=== PATIENT | female | born 1970 | race Asian ===

== ENCOUNTER 2020-09-30 12:19 | Outpatient (REF) | payer OTHER, SELFPAY ==
--- NOTE | ~2020-09-30 | XR_ITS ---
EXAMINATION: XR SHOULDER, RIGHT CLINICAL INFORMATION: Pain COMPARISON: None TECHNIQUE: Three views of the right shoulder. FINDINGS: The bones and soft tissues are normal. No fracture. Glenohumeral and acromioclavicular alignment is anatomic with normal joint space. No abnormal soft tissue calcifications. XR/XR shoulder RT min 2V IMPRESSION: Normal right shoulder.
== END 2020-09-30 12:20 | disposition home or self-care (01) ==
LOC: HO.HMGCX 12:19
PROVIDERS: PCP Internal Medicine; Visit Provider Nurse Practitioner Family
DX: M25.511 Pain in right shoulder (principal)
CPT/HCPCS: 73030

== ENCOUNTER → 2020-10-16 07:53 | Outpatient (BNVA) | payer OTHER, SELFPAY | PROVIDERS: PCP Internal Medicine; Visit Provider Physician Assistant | DX: M75.41 Impingement syndrome of right shoulder (principal) | CPT/HCPCS: 20610; 99202; J1040 ==

== ENCOUNTER 2020-11-19 10:00 | Outpatient (RCR) | payer OTHER, SELFPAY ==
--- NOTE | 2020-11-12 13:49 | MHC.PT.EP ---
[facility] [place] Office [place] Office [place] Office [address] Raphael Zamudio [address] [phone] F: [phone] F: [phone] F: [phone] F: [phone] Physical Therapy Plan of Care Date of Evaluation: Date of Surgery: N/A Diagnosis: impingement syndrome of R shoulder Assessment: Working PT diagnoses include R shoulder impingment and R sided cervical radiculopathy. pt presents to physical therapy with pain, decreased range of motion, decreased strength, impaired functional mobility, impaired postural awareness, and gait deviations. pt is a good candidate for skilled PT due to age, potential remediation of impairments, typical disease/condition progression and prognosis, comorbidities, and motivation. pt would benefit from tailored strengthening and stretching exercise program, functional training, gait training, postural re-training, neuromuscular re-education, modalities as needed for pain, equipment safety demonstration. Frequency and Duration: The patient will be seen 2x/wk for 4 wks Short Term Goals: pt will be I w/ HEP to promote self-management of condition. pt will demo proper sitting posture w/ lumbar roll to promote neutral spine. pt will improve R shoulder flexion by 15 degrees to promote ease in reaching for objects on higher shelves. Senior Care Goals: pt will report a statistically significant improvement in self-reported outcome measure, SPADI, to promote return to PLOF. pt will improve R shoulder flexion strength to 4/5 in all planes to improve functional lifting and carrying at work. pt will report <2/10 R shoulder pain w/ upper body dressing to promote full return to ADLs. Treatment Plan: Modalities to reduce pain, spasms and effusion. Manual therapy to restore motion and function. Therapeutic exercise to improve strength and flexibility. Neuromuscular re-education for posture and balance. Therapeutic activities to return to functional activities of daily living. Electronically signed by: Domonique Lew PT, DPT Please sign and return to therapist. Thank you for your referral.
--- NOTE | 2020-12-01 14:04 | MHC.PT.DC ---
[facility] [place] Office [place] Office [place] Office [address] Raphael Zamudio 140 [facility] [phone] F: [phone] F: [phone] F: [phone] F: [phone] Physical Therapy Discharge Report Diagnosis: impingement syndrome of R shoulder Date of Surgery: N/A Date of Evaluation: 11/12/20 Date of Discharge: 12/01/20 Treatments to Date: 2 Cancellations to Date: 0 No Shows to Date: 0 Discharge Status: Visit Non-compliance Discharge Summary: The patient has only attended one visit after her initial evaluation. She was given a series of both cervical and shoulder exercises to work on as part of her home exercise program. She has not called to schedule any further appointments in nearly two weeks. She is discharged from this physical therapy plan of care due to non-compliance. Her current status is unknown. Electronically signed by: Domonique Lew PT, DPT Please sign and return to therapist. Thank you for your referral.
== END 2020-12-01 14:04 | disposition home or self-care (01) ==
LOC: HO.PT 10:00
PROVIDERS: PCP Internal Medicine; Visit Provider Physician Assistant
DX: M75.40 Impingement syndrome of unspecified shoulder (principal)
CPT/HCPCS: 97110; 97112; 97140; 97162

== ENCOUNTER → 2020-12-26 13:18 | Outpatient (BNVA) | payer OTHER, SELFPAY | PROVIDERS: Visit Provider Physician Assistant | DX: M75.40 Impingement syndrome of unspecified shoulder (principal) | CPT/HCPCS: 99212 ==

== ENCOUNTER → 2021-01-12 08:01 | Outpatient (BNVA) | payer OTHER, SELFPAY | PROVIDERS: PCP Internal Medicine; Visit Provider Internal Medicine | DX: M75.40 Impingement syndrome of unspecified shoulder (principal) | CPT/HCPCS: 99202 ==

== ENCOUNTER 2021-01-14 13:30 | Outpatient (REF) | payer OTHER, SELFPAY ==
--- NOTE | ~2021-01-14 | MR_ITS ---
EXAMINATION: MR SHOULDER WITHOUT CONTRAST, RIGHT CLINICAL INFORMATION: Right shoulder pain. Impingement syndrome. COMPARISON: Right shoulder radiographs dated 09/30/2020 TECHNIQUE: MRI of the shoulder without contrast was performed on a high-field scanner. FINDINGS: ROTATOR CUFF: Mild supraspinatus and minimal subscapularis tendinosis without a measurable rotator cuff tendon defect. No muscle atrophy or fatty infiltration. BICEPS: Normal. CORACOACROMIAL ARCH: The undersurface of the acromion is curved with no subacromial spur. The acromioclavicular joint is normal. Fluid within the subacromial-subdeltoid bursa, consistent with bursitis. LABRUM/CAPSULE: Normal. GLENOHUMERAL JOINT/MARROW: Normal. MR/MR shoulder RT wo con IMPRESSION: 1. Subacromial-subdeltoid bursitis. 2. Mild supraspinatus and minimal subscapularis tendinosis without a measurable rotator cuff tendon defect.
== END 2021-01-14 13:31 | disposition home or self-care (01) ==
LOC: HO.MRI 13:30
PROVIDERS: Visit Provider Physician Assistant
DX: M75.40 Impingement syndrome of unspecified shoulder (principal)
CPT/HCPCS: 73221

== ENCOUNTER → 2021-01-23 09:27 | Outpatient (BNVA) | payer OTHER, SELFPAY | PROVIDERS: PCP Internal Medicine; Visit Provider Internal Medicine ==

== ENCOUNTER 2023-10-04 12:18 | Outpatient (AMB) | payer OTHER, SELFPAY ==
[2023-10-04 12:30] VITALS: BP 122/76; PULSE 64; O2SAT 100; BMI 22.3
--- NOTE | 2023-10-04 12:30 | A.OFFPC_ITS ---
Vital Signs 10/04/23 12:30 Height 5 ft 2 in Weight 122 lb BMI 22.3 BP 122/76 Blood Pressure Location Rt brachial Position Sitting Pulse 64 Pulse Source Pulse Oximeter Pulse Oximetry (%) 100 Oxygen Delivery Method Room Air Intake Visit Reasons: Annual PE Allergies No Known Allergies [No Known Allergies*] Allergy (Verified 10/04/23 12:32) Medication List - Last Reconciled 10/04/23 by Александр Manriquez MD No Known Home Meds Tobacco use date assessed: 10/04/23 Dental Screening Dental Screen Date: 10/04/23 Did you have a dental visit in the last 12 months?: Yes Did you have a dental problem in the last 6 months where you did not have access to dental care?: No Was dental information given to patient?: Patient has dentist HPI Annual PE HPI Details Patient is a 53-year-old female who was last seen almost 3 years ago came in for physical exam Patient is complaining of bilateral knee pain off and on what she is doing well right now Patient says that she had a menopause in 2017 I have added bone density as well as mammogram order She is due for colonoscopy as well Patient is in need of OBGYN as well. 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 1. Little interest or pleasure in doing things: not at all 2. Feeling down, depressed, or hopeless: not at all 3. Trouble falling or staying asleep, or sleeping too much: not at all 4. Feeling tired or having little energy: not at all 5. Poor appetite or overeating: not at all 6. Feeling bad about yourself - or that you are a failure or have let yourself or your family down: not at all 7. Trouble concentrating on things, such as reading the newspaper or watching television: not at all 8. Moving or speaking so slowly that other people could have noticed. Or the opposite - being so fidgety or restless that you have been moving around a lot more than usual: not at all 9. Thoughts that you would be better off or of hurting yourself in some way: not at all Total score: 0 Depression Screening Interpretation: Negative Depression Screening Done: Yes 77930 - PHQ-9 Billing: Yes Source: Developed by Drs. Oc Chan, Siomara Alvarez, Gregg Durham and colleagues, with an educational annia from [employer]. Thrive Questionnaire Date Thrive assessed: 10/04/23 I am a: Patient What is your living situation today?: I have a steady place to live Within the past 12 months, did the food you bought not last and you didn't have the money to get more?: Never true Within the past 12 months, did you worry whether your food would run out before you got money to buy more?: Never true Do you have trouble paying for medicines?: No Do you have trouble getting transportation to medical appointments?: No Do you have trouble paying your heating and electricity bill?: No Do you have trouble taking care of your child, family member or friend?: No Do you have trouble with day-to-day activities such as bathing, preparing meals, shopping, managing finances, etc.?: No Are you currently unemployed and looking for a job?: No Are you interested in more education?: No Currently or been in a relationship where the following occur: I choose not to answer this question THRIVE Score: 0 AUDIT C Alcohol Use Questionnaire (AUDIT-C) 1. How often do you have a drink containing alcohol?: Never 3. How often do you have six or more drinks on one occasion?: Never Total Score: 0 Score Reviewed/Action Taken: Yes CATHERINE-7 AMB Questionnaire CATHERINE-7 Date CATHERINE - 7 assessed: 10/04/23 Feeling nervous, anxious, or on edge: 0 = Not at all Not being able to stop or control worryin = Not at all Worrying too much about different things: 0 = Not at all Trouble relaxin = Not at all Being so restless that it is hard to sit still: 0 = Not at all Becoming easily annoyed or irritable: 0 = Not at all Feeling afraid as if something awful might happen: 0 = Not at all Total CATHERINE-7 score (0-4 normal; 5-9 mild; 10-14 moderate; 15-21 severe): 0 Source: Developed by Drs. Oc Chan, Siomara Alvarez, Gregg Durham and colleagues, with an educational annia from [employer]. CATHERINE-7 Assessment Billing CATHERINE-7 Assessment Tool: CATHERINE-7 Assessment 84451 Review of Systems Const Denies chills, Denies fever(s) and Denies headache(s) Eyes Denies blurry vision ENT Denies headache(s), Denies nasal discharge, Denies nasal obstruction, Denies odynophagia and Denies sinus pain Card Denies chest pain at rest and Denies chest pain with activity Resp Denies cough and Denies hemoptysis GI Denies diarrhea, Denies odynophagia, Denies vomiting and Denies hematemesis Reports as per HPI Musc Denies abnormal gait Skin/Breast Reports as per HPI Neuro Denies Neuro-related abnormal movements, Denies Abnormal speech present, Denies abnormal gait, Denies headache(s) and Denies Sensory deficit (Neuro) Psych Denies mood swings and Denies paranoia Endo Reports as per HPI Cr/Lymph Reports as per HPI Aller/Immun Reports as per HPI Physical exam (Primary Care) Vital Signs: Last Vital Signs Pulse 64 10/04/23 12:30 BP 122/76 10/04/23 12:30 Pulse Ox 100 10/04/23 12:30 Oxygen Delivery Method Room Air 10/04/23 12:30 BMI result Body Mass Index 22.3 Tobacco/Smoking Status: Tobacco use Status Tobacco use date assessed 10/04/23 10/04/23 12:35 Patient Tobacco Use Status Never used Tobacco 10/04/23 12:35 e-Cigarette/Vaping Use Never Used 10/04/23 12:35 PHQ-9: PHQ-9 Score PHQ-9: Total score 0 10/04/23 12:55 Depression Screening Interpretation: Negative Thrive Assessment: Date of Thrive Assessment Date Thrive assessed 10/04/23 10/04/23 12:55 Currently or been in a relationship where the following occur: I choose not to answer this question Const General: cooperative, comfortable and no acute distress Orientation/consciousness: patient oriented x3 HENMT Head: Yes normocephalic and Yes atraumatic Eyes General: appearance normal, both eyes and all related structures Pupils: Equal, round and reactive pupils present EOM: EOMs intact bilaterally Neck Neck: Yes supple and No lymphadenopathy Thyroid: Thyroid normal Lymphatic: no lymphadenopathy noted Chest Breast/axilla palpation: normal palpation of the breasts Resp Effort & Inspection: normal respiratory effort and able to speak in complete sentences Auscultation: clear to auscultation bilaterally Cardio Heart sounds: S1 normal heart sound present and S2 normal heart sound present GI Palpation (GI): Soft to palpation and nontender Auscultation: normal bowel sounds General: Yes no CVA tenderness Back/Spine/Pelvis Back: no CVA tenderness Skin General skin exam: elasticity normal and turgor normal Neuro General: patient oriented x3 and gait normal Cranial nerves: Yes Equal, round and reactive pupils present Speech: No Abnormal speech present Sensory Exam: No Sensory deficit (Neuro) Coordination: tandem gait normal and Romberg test negative Extrem General: Yes normal exam except as noted and No edema Assessment and Plan Assessment & Plan (1) Encounter for general adult medical examination with abnormal findings: Code(s): Z00.01 - Encounter for general adult medical examination with abnormal findings (2) Degenerative arthritis of knee, bilateral: Code(s): M17.0 - Bilateral primary osteoarthritis of knee Qualifiers: Osteoarthritis type: primary Qualified Code(s): M17.0 - Bilateral primary osteoarthritis of knee (3) Colon cancer screening: Code(s): Z12.11 - Encounter for screening for malignant neoplasm of colon (4) Encounter for routine gynecological examination: Code(s): Z01.419 - Encounter for gynecological examination (general) (routine) without abnormal findings (5) Premature menopause: Code(s): E28.319 - Asymptomatic premature menopause Plan Patient is a 53-year-old female who was last seen almost 3 years ago came in for physical exam Patient is complaining of bilateral knee pain off and on what she is doing well right now Patient says that she had a menopause in 2017 I have added bone density as well as mammogram order She is due for colonoscopy as well Patient is in need of OBGYN as well. Lab order placed to be done fasting We will book telemedicine visit in 2 weeks to go over labs Physical exam 1 year Orders: Orders Comprehensive [place]. Panel Fast Today M17.0 - Bilateral primary osteoarthritis of knee, Z00.01 - Encounter for general adult medical examination with abnormal findings MM tomosynthesis screening BI Today E28.319 - Asymptomatic premature menopause, Z12.31 - Encounter for screening mammogram for malignant neoplasm of breast Complete Blood Count Auto Diff Today M17.0 - Bilateral primary osteoarthritis of knee, Z00.01 - Encounter for general adult medical examination with abnormal findings TSH reflex Free T4 Today M17.0 - Bilateral primary osteoarthritis of knee, Z00.01 - Encounter for general adult medical examination with abnormal findings Vitamin D 25-OH (D2 and D3) Today M17.0 - Bilateral primary osteoarthritis of knee, Z00.01 - Encounter for general adult medical examination with abnormal findings Lipid Panel Today M17.0 - Bilateral primary osteoarthritis of knee, Z00.01 - Encounter for general adult medical examination with abnormal findings UA CC w/rflx Micro + Cult Today Z00.01 - Encounter for general adult medical examination with abnormal findings XR DEXA axial skeleton Today E28.319 - Asymptomatic premature menopause, Z12.31 - Encounter for screening mammogram for malignant neoplasm of breast Referrals Gastroenterology Referral Z12.11 - Encounter for screening for malignant neoplasm of colon 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
== END 2023-10-04 13:00 | disposition home or self-care (01) ==
PROVIDERS: PCP Internal Medicine; Visit Provider Internal Medicine
DX: Z00.00 Encounter for general adult medical examination without abnormal findings (principal); M17.0 Bilateral primary osteoarthritis of knee; Z12.11 Encounter for screening for malignant neoplasm of colon; E28.319 Asymptomatic premature menopause
CPT/HCPCS: 99396

== ENCOUNTER 2023-10-04 13:03 | Outpatient (REF) | payer OTHER, SELFPAY ==
[2023-10-04 16:12] LABS: Appearance Urine Clear; Color Urine Yellow; Glucose Urine UA Negative (Negative); Leukocyte Esterase Urine Negative (Negative); Nitrite Urine Negative (Negative); Specific Gravity - Urine <= 1.005 (1.005-1.025); Urine Blood Negative (Negative); Urine Ketones Negative (Negative); Urine Protein Negative (Neg-Trace)
[2023-10-04 16:26] LABS: MANUAL DIFF FLAG NO
[2023-10-04 16:38] LABS: Basophils Percent Auto 0.4 % (0-2); Eosinophils Absolute Auto 0.1 X10*3/uL (0.0-0.4); Hematocrit 37.9 % (37.0-47.0); Hemoglobin 12.1 g/dl (12.0-16.0); Imm Gran Abs Auto 0.01 X10*3/uL (0.00-0.03); Imm Gran Pct Auto 0.2 % (0.0-0.4); Lymphocytes Absolute Auto 2.5 X10*3/uL (1.2-4.9); Lymphocytes Percent Auto 50.9 % (20-40); Mean Corpuscular HGB Conc 31.9 g/dl (31.0-35.0); Mean Corpuscular Hemoglobin 29.5 pg (27.0-33.0); Mean Corpuscular Volume 92.4 fL (80.0-98.0); Mean Platelet Volume 10.9 fL (9.4-12.3); Monocytes Absolute Auto 0.3 X10*3/uL (0.1-1.2); Monocytes Percent Auto 5.9 % (2-11); Neutrophils Absolute Auto 2.1 x10*3/uL (2.0-8.3); Neutrophils Percent Auto 41.6 % (45-73); Platelet Count 223 X10*3/uL (160-400); Red Cell Distribution Width 12.1 % (11.0-16.0); White Blood Count 4.9 X10*3/uL (4.8-10.8)
[2023-10-04 17:30] LABS: Alanine Aminotransferase 14 U/L (0-31); Albumin Level 4.7 g/dL (3.5-5.0); Alkaline Phosphatase 111 U/L (39-117); Anion Gap 14 (12-20); Aspartate Amino Transferase 17 U/L (5-31); Bilirubin Total 0.3 mg/dL (0.0-1.0); Blood Urea Nitrogen 9 mg/dL (9-16); Calcium 9.9 mg/dL (8.4-10.2); Carbon Dioxide 26 mmol/L (22-29); Chloride 108 mmol/L (96-108); Cholesterol 200 mg/dL (<200); Estimated Glomerular Filt Rate > 60; Glucose Fasting 88 mg/dL (60-99); HDL Cholesterol 55 mg/dL (>40); LDL Cholesterol Calculated 122 mg/dL (<100); Potassium 4.4 mmol/L (3.3-5.1); Sodium 144 mmol/L (135-145); Total Protein 7.6 g/dL (6.5-8.0); Triglycerides 117 mg/dL (<150)
[2023-10-04 17:46] LABS: TSH reflex Free T4 2.52 uIU/mL (0.32-4.0)
[2023-10-09 15:49] LABS: Vitamin D 25-OH, D2 <4 ng/mL; Vitamin D 25-OH, D3 16 ng/mL; Vitamin D 25-OH, Total 16 ng/mL (30-100)
== END 2023-10-04 13:04 | disposition home or self-care (01) ==
LOC: HO.HMGCLDS 13:03
PROVIDERS: PCP Internal Medicine; Visit Provider Internal Medicine
DX: Z00.01 Encounter for general adult medical examination with abnormal findings (principal); M17.0 Bilateral primary osteoarthritis of knee
CPT/HCPCS: 36415; 80053; 80061; 81003; 82306; 84443; 85025

== ENCOUNTER 2023-10-19 10:06 | Outpatient (AMB) | payer OTHER, SELFPAY ==
--- NOTE | 2023-10-19 10:25 | A.OFFPC_ITS ---
Intake Visit Reasons: 2 week follow up Allergies No Known Allergies [No Known Allergies*] Allergy (Verified 10/19/23 10:25) Medication List - Last Reconciled 10/19/23 by Александр Manriquez MD No Known Home Meds Tobacco use date assessed: 10/19/23 Dental Screening Dental Screen Date: 10/19/23 Did you have a dental visit in the last 12 months?: Yes Did you have a dental problem in the last 6 months where you did not have access to dental care?: No Was dental information given to patient?: Patient has dentist HPI 2 week follow up HPI Details Telemed visit to go over labs reports reviewed with patient Vit D level is low she is to start OTC supplement 1000 u daily for next 6 M [facility] Social History Housing: House Alcohol intake: never Patient Tobacco Use Status: Never used Tobacco e-Cigarette/Vaping Use: Never Used service: No Current occupational status: employed 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 How often do you have a drink containing alcohol?: Never 3. How often do you have six or more drinks on one occasion?: Never Total Score: 0 Score Reviewed/Action Taken: Yes CATHERINE-7 AMB Questionnaire CATHERINE-7 Date CATHERINE - 7 assessed: 10/04/23 Source: Developed by Drs. Oc hCan, Siomara Alvarez, Gregg Durham and colleagues, with an educational annia from [employer]. Review of Systems Const Denies chills and Denies fever(s) ENT Denies epistaxis and Denies nasal discharge Card Denies chest pain Resp Denies chest congestion, Denies cough and Denies hemoptysis GI Denies diarrhea and Denies nausea Skin/Breast Denies rash Neuro Reports no additional complaints Psych Reports no additional complaints Endo Reports no additional complaints Physical exam (Primary Care) Tobacco/Smoking Status: Tobacco use Status Tobacco use date assessed 10/19/23 10/19/23 10:26 Patient Tobacco Use Status Never used Tobacco 10/19/23 10:26 e-Cigarette/Vaping Use Never Used 10/19/23 10:26 Thrive Assessment: Date of Thrive Assessment Date Thrive assessed 10/04/23 10/19/23 10:26 Telehealth Telehealth Telehealth Platform: [employer] Location of provider rendering services: practice address Location of patient: address on file Patient Identification confirmed using: Name, : Yes Telehealth method: voice only Patient verbally consented to treatment: Yes Patient verbally consented to billing insurance company: Yes Patient informed of any privacy concerns related to visit: Yes Minutes spent on Phone/Video with Pt.: 13 Assessment and Plan Assessment & Plan (1) Vitamin D deficiency: Code(s): E55.9 - Vitamin D deficiency, unspecified Plan Telemed visit to go over labs reports reviewed with patient Vit D level is low she is to start OTC supplement 1000 u daily for next 6 M patient was given time to ask questions Coding Level of Care Code Tele Est Pt Level 3 (75648) Diagnoses Vitamin D deficiency E55.9
== END 2023-10-19 12:16 | disposition home or self-care (01) ==
LOC: HO.HMGC 10:06
PROVIDERS: PCP Internal Medicine; Visit Provider Internal Medicine
DX: E55.9 Vitamin D deficiency, unspecified (principal)
CPT/HCPCS: 99213

== ENCOUNTER 2023-10-20 09:45 | Outpatient (REF) | payer OTHER, SELFPAY ==
[2023-10-28 00:39] LABS: HPV mRNA E6/E7 rflx Not Detected (Not Detected)
== END 2023-10-20 09:46 | disposition home or self-care (01) ==
LOC: HO.LAB 09:45
PROVIDERS: Advanced Practice Midwife; PCP Internal Medicine; Visit Provider Advanced Practice Midwife
DX: Z01.419 Encounter for gynecological examination (general) (routine) without abnormal findings (principal); E28.319 Asymptomatic premature menopause
CPT/HCPCS: 87624; 88142; 99386

== ENCOUNTER 2023-10-20 09:45 | Outpatient (AMB) | payer OTHER, SELFPAY ==
[2023-10-20 10:02] VITALS: BP 110/62; BMI 23.0
--- NOTE | 2023-10-20 10:02 | A.OFFVIS_ITS ---
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 She usually sees Dr. Manriquez her last Pap smear was about 4 years ago and she says it was normal. She has never had any lint cleaner concerns she went through menopause around 2017 she had symptoms of it before that she thinks she gets enough calcium she has had blood work done with her primary care provider recently and was told she was a little bit low on vitamin-D and vitamin-B and will be taking supplements. She is vegetarian she does exercise at home and she does a lot of walking so she is very active and she does meditation and she feels she does not have any stress she has not very sexually active anymore with her . This is not a problem. She believes a gastroenterology referral has been placed for her as well as mammogram order she thought today was the mammogram so she was not prepared for Pap today but she thinks it is okay. She has no concerns about STDs she had her tubes tied after her 2nd she has 2 grown children. 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 Cognitive needs: No Hearing needs: No Vision needs: No Female Reproductive History Menstrual Age of Menarche: 17 Duration of menses: 3-5 days control method: permanent sterilization Total pregnancies: 2 Full term: 2 History of abnormal pap smear: No (2019,negative ,per patient) History of abnormal mammogram: No (2019 neg per patient) Physical Exam Vital Signs: Last Vital Signs BP 110/62 10/20/23 10:02 BMI result Body Mass Index 23.0 Const General: healthy appearing, comfortable, no acute distress, well developed and alert Nutritional Appearance: average body habitus Orientation/consciousness: patient oriented x3 Limitations: no limitations HEENT Head: Yes normocephalic Neck Neck: Yes normal visual inspection Chest Chest palpation & inspection: normal inspection of the chest Breast/axilla inspection: normal inspection of the breasts and normal inspection of the axillae Breast/axilla palpation: normal palpation of the breasts and normal palpation of the axillae Resp Effort & Inspection: normal respiratory effort GI Inspection: Yes normal to inspection, No Abdominal wall edema and No distended Palpation (GI): Soft to palpation and nontender Other: External exam within limits cervix pink smooth closed postmenopausal small flattened against vaginal apex atrophic changes evident. Uterus very small nontender adnexa nontender not enlarged good tone with Kegel no abnormal discharge. General: Yes bladder normal to palpation External Female Exam: normal external appearance and normal appearance of the urethra Speculum Exam - Vagina: normal appearance of the vagina, normal palpation and normal vaginal discharge Speculum Exam - Cervix: normal appearance of the cervix, normal palpation and nontender Bimanual exam- vagina & uterus: normal bimanual exam, normal palpation, uterine size normal, bladder normal to palpation, consistency normal, normal palpation, uterine mobility normal, uterine shape normal, No Cervical tenderness present, non-tender and no cervical motion tenderness Bimanual Exam- Adnexa, other: normal adnexae, no masses, normal and No adnexal tenderness Neuro General: patient oriented x3 Assessment & Plan Assessment & Plan (1) Premature menopause: Code(s): E28.319 - Asymptomatic premature menopause Category: Medical (2) Women's annual routine gynecological examination: Code(s): Z01.419 - Encounter for gynecological examination (general) (routine) without abnormal findings Category: Medical (3) Cervical cancer screening: Code(s): Z12.4 - Encounter for screening for malignant neoplasm of cervix Category: Medical (4) Breast cancer screening: Comment: States her mother of breast cancer. She is discussed this with her primary she is now going to getting yearly mammograms, discussed genetic screening as well. Code(s): Z12.39 - Encounter for other screening for malignant neoplasm of breast Category: Medical Plan -----Discussed in this visit the following: healthy balanced diet, regular and consistent exercise, getting recommended health screens, doing the best she can for her particular health concerns, kegel exercises, pap smear screening and followup recommendations, mammography screening and SBE, normal changes in cycles in her life stage--- . She says an order has been placed for her mammogram already and she is just waiting for the appointment. She discussed the family history of breast cancer with her doctor. Her mother is no longer alive for genetic testing. Discussed getting enough calcium in her diet. She does active exercise and keeps herself healthy she is getting her all of her other screening through her primary care provider. Discussed annual exams with that her next Pap smear would not do be due for 5 years if this 1 is normal she had new concerns about infection and declines testing. . Orders: Orders Pap Smear Today Z01.419 - Encounter for gynecological examination (general) (routine) without abnormal findings Coding Level of Care Code New Pt Prev Care 40-64y(67315) Diagnoses Premature menopause E28.319 Women's annual routine gynecological examination Z01.419 Cervical cancer screening Z12.4 Breast cancer screening Z12.39
== END 2023-10-20 13:18 | disposition home or self-care (01) ==
LOC: HO.HWSM 09:45
PROVIDERS: PCP Internal Medicine; Visit Provider Advanced Practice Midwife
DX: Z01.419 Encounter for gynecological examination (general) (routine) without abnormal findings (principal)
CPT/HCPCS: 99386

== ENCOUNTER 2023-11-22 11:32 | Outpatient (REF) | payer OTHER, SELFPAY ==
--- NOTE | ~2023-11-22 | MM_ITS ---
EXAMINATION: MM SCREENING DIGITAL BREAST TOMOSYNTHESIS, BILATERAL CLINICAL INFORMATION: Screening. Asymptomatic. COMPARISON: Mammography: This study is compared with prior exams dating back to 2016. TECHNIQUE: Digital breast tomosynthesis is performed in both the craniocaudal and mediolateral oblique views along with computer-aided detection (CAD). Synthesized 2D images are generated from the tomosynthesis. FINDINGS: The breasts are heterogeneously dense, which may obscure small masses (ACR BI-RADS breast composition Category c). There are no significant masses, abnormal calcifications, or other abnormalities. MM/MM tomosynthesis screening BI IMPRESSION: No mammographic evidence of malignancy. ASSESSMENT: BI-RADS BI-RADS 1 - Negative RECOMMENDATION: Routine annual mammography screening. 1 year F/U This examination should not preclude the clinical evaluation of a suspicious palpable abnormality. This patient's information was entered into a reminder system with a target due date for their next mammogram.
--- NOTE | ~2023-11-22 | MM_ITS ---
EXAMINATION: BONE DENSITOMETRY CLINICAL INDICATION: Asymptomatic menopausal state. COMPARISON: This is the patient's baseline examination. TECHNIQUE: Using a [employer] DXA System (software version: 13.1) manufactured by [employer], dual-energy x-ray absorptiometry was performed of the lumbar spine and left hip. The images are of good technical quality. Summary results are attached. FINDINGS: LEFT FEMUR, NECK: BMD 0.787 g/cm2, Z-score -0.7, T-score -1.8, osteopenia. LEFT FEMUR, TOTAL: BMD 0.874 g/cm2, Z-score -0.3, T-score -1.1, osteopenia. AP SPINE L1-L4: BMD 0.892 g/cm2, Z-score -1.6, T-score -2.4, osteopenia. IDENTIFIED RISK FACTORS: Early menopause, secondary osteoporosis, parental hip fracture, height loss. HISTORY OF FRACTURE: None listed. MEDICATIONS: Calcium supplements or multivitamin, vitamin D. MM/XR DEXA axial skeleton IMPRESSION: 1. DIAGNOSIS: Osteopenia based on the lowest T-score value of -2.4 in the lumbar spine applying World Health Organization criteria. 2. 10-YEAR FRACTURE RISK PREDICTION, FRAX: Major osteoporotic fracture (clinical spine, forearm, hip or shoulder) 5.9%. Hip fracture 0.4%. 3. Treatment Recommendations: NOF guidelines recommend consideration for treatment in postmenopausal women and men age 50 and older presenting with the following: -A hip or vertebral (clinical or morphometric) fracture. -T-score less than or equal to -2.5 at the femoral neck or spine after appropriate evaluation to exclude secondary causes. -Low bone mass at the hip or spine and a 10-year fracture probability by FRAX of greater than or equal to 3% for hip fracture or greater than or equal to 20% for major osteoporotic fracture based on the [place] adapted WHO algorithm. 4. Other Recommendations: All treatment decisions require clinical judgment and consideration of individual patient factors, including patient preferences, comorbidities, previous drug use, risk factors not captured in the FRAX model (e.g. frailty, falls, vitamin D deficiency, increased bone turnover, interval significant decline in bone density) and possible under or overestimation of fracture risk by FRAX. Additional medical evaluation for secondary cause of low bone mineral density may be appropriate. FUTURE SCAN RECOMMENDATION: People with diagnosed cases of osteoporosis or at high risk for fracture should have regular bone mineral density tests. For patients eligible for Medicare, routine testing is allowed once every 2 years. The testing frequency can be increased to one year for patients who have rapidly progressing disease, those who are receiving or discontinuing medical therapy to restore bone mass, or have additional risk factors.
== END 2023-11-22 11:33 | disposition home or self-care (01) ==
LOC: HO.MAMMO 11:32
PROVIDERS: PCP Internal Medicine; Visit Provider Internal Medicine
DX: Z12.31 Encounter for screening mammogram for malignant neoplasm of breast (principal); Z13.820 Encounter for screening for osteoporosis; E28.319 Asymptomatic premature menopause
CPT/HCPCS: 77063; 77067; 77080

== ENCOUNTER → 2023-11-22 12:00 | Outpatient (BNV) | payer OTHER, SELFPAY | PROVIDERS: PCP Internal Medicine; Visit Provider Radiology Diagnostic Radiology | DX: Z12.31 Encounter for screening mammogram for malignant neoplasm of breast (principal) | CPT/HCPCS: 77063; 77067 ==

== ENCOUNTER 2023-12-05 13:20 | Outpatient (AMB) | payer OTHER, SELFPAY ==
[2023-12-05 13:55] VITALS: BP 122/78; BMI 23.2
--- NOTE | 2023-12-05 13:55 | MHC.OFFVIS ---
Vital Signs 12/05/23 13:55 Height 5 ft 1 in Weight 123 lb BMI 23.2 BP 122/78 Intake Visit Reasons: re peat pap Rock Cutter Required: No Rock Cutter Services: Rock Cutter Present Information Interpreted: clinical only Acoustics Teacher: Acoustics Teacher Present Allergies No Known Allergies [No Known Allergies*] Allergy (Verified 12/05/23 13:57) Medication List - Last Reconciled 12/05/23 by Denae Blount CNM No Known Home Meds Is last menstrual period known: No HPI HPI re peat pap: Details: Patient is here for repeat Pap smear may explain the previous findings and the common challenge postmenopausally. 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 Results Reviewed Results Reviewed: Name: Melanie Saab Age/Sex: 53/F Attending: Denae Blount CNM : 1970 Submitted by: Denae Blount CNM Copies to: Александр Manriquez MD MR #: [id number] Status: DEP REF Collected: 10/20/23 Location: .LAB Received: 10/21/23 Interpretation Unsatisfactory Insufficient cellular material. HPV mRNA E6/E7: NOT DETECTED This assay detects E6/E7 viral messenger RNA (mRNA) from 14 high-risk HPV types (16, 18, 31, 33, 35, 39, 45, 51, 52, 56, 58, 59, 66, 68) HPV testing performed by [facility], [place], [place]. See reference laboratory portion of the EMR for entire report. Clinical Information LMP: Postmenopausal Previous PAP test: WNL Material Received ThinPrep-Cervical Copies To Александр Manriquez MD [facility] [address] [id number] Denae Blount CNM [address] [place] [address] [id number] Electronically Signed By: Ember Arellano 11/13/23 7525 The Pap Test is a screening procedure with the inherent possibility of both false negative and false positive results. Results should be interpreted in the context of historic and current clinical findings. Reliability of the Pap Test is enhanced by performing the test on a regular repetitive basis. Patient: Melanie Saab Age/Sex: 53/F MR#: [id number] Page 1 of 1 Assessment & Plan Assessment & Plan (1) Cervical cancer screening: Comment: 10/20/2023 Pap as insufficient cellular material though HPV is negative will need repeat. Code(s): Z12.4 - Encounter for screening for malignant neoplasm of cervix Category: Medical Plan Discussed postmenopausal changes in some detail discussed that some women opt to try vaginal estrogen and also the use of vaginal lubricating gels for intimacy she is not interested. Her as age-related changes as well but they have love. If this Pap smear is normal her next Pap smear would be in 5 years. Coding Level of Care Code Est Pt Level 3 (75773) Diagnoses Cervical cancer screening Z12.4
== END 2023-12-05 15:33 | disposition home or self-care (01) ==
LOC: HO.HWSM 13:20
PROVIDERS: PCP Internal Medicine; Visit Provider Advanced Practice Midwife
DX: Z12.4 Encounter for screening for malignant neoplasm of cervix (principal)
CPT/HCPCS: 99213

== ENCOUNTER → 2023-12-05 13:20 | Outpatient (BNVA) | payer OTHER, SELFPAY | PROVIDERS: PCP Internal Medicine; Visit Provider Advanced Practice Midwife | DX: Z12.4 Encounter for screening for malignant neoplasm of cervix (principal) | CPT/HCPCS: 99212 ==

== ENCOUNTER 2023-12-05 19:40 | Outpatient (REF) | payer OTHER, SELFPAY ==
[2023-12-08 14:18] LABS: HPV mRNA E6/E7 Not Detected (Not Detected)
== END 2023-12-05 19:41 | disposition home or self-care (01) ==
LOC: HO.LNP 19:40
PROVIDERS: Visit Provider Advanced Practice Midwife
DX: Z01.419 Encounter for gynecological examination (general) (routine) without abnormal findings (principal); Z11.51 Encounter for screening for human papillomavirus (HPV)
CPT/HCPCS: 87624; 88175

== ENCOUNTER 2024-01-06 12:39 | Outpatient (AMB) | payer OTHER, SELFPAY ==
[2024-01-06 13:12] VITALS: BP 116/76; PULSE 94; BMI 23.2
--- NOTE | 2024-01-06 13:12 | MHC.OFFVIS ---
Vital Signs 01/06/24 13:12 Height 5 ft 1 in Weight 122 lb 9.232 oz BMI 23.2 BP 116/76 Blood Pressure Location Lt brachial Position Sitting Pulse 94 Intake Visit Reasons: Colonoscopy Screening Intake Note: Patient in office today for colonoscopy screening. CC: Patient c/o a lot of belching for years, epigastric pain, acid reflux with spicy food, back pain, shoulder pain, sometimes constipation. She also reports blood in stool sometimes when she eats a lot of spicy foods and pain from the back of her neck that she feels is caused by gas. She states that she sometimes take acetaminophen for pain. Dusting And Brushing Machine Operator Required: No Allergies No Known Allergies [No Known Allergies*] Allergy (Verified 01/06/24 13:34) HPI HPI Colonoscopy Screening: Details: 53-year-old female her for a preprocedural meeting to discuss a screening colonoscopy. She is referred by Александр Manriquez. PMX Shoulder pain/bursitis * SURGICAL HISTORY Appendectomy Tubal ligation * ALLERGIES: NKDA * Knowlent LABS: Laboratory Tests 10/04/23 13:08 WBC 4.9 Hgb 12.1 Hct 37.9 Plt Count 223 Estimated GFR > 60 Total Bilirubin 0.3 AST 17 ALT 14 Alkaline Phosphatase 111 TSH 2.52 TODAY'S VISIT She has developed problems with gas that manifests as belching, [id number], pain and flatulence. This has been for a few years. It seems to be she also has success with fennel and ganthoda powder. . She is vegetarian and would not like a porcine derived enzyme. In the past she had trouble being anesthetized and she would have pain during surgery but epidurals worked well. She denies any cardiac or respiratory problems NO ID problems No known FHX crc or polyps. [facility] Medical History (Updated 01/06/24 @ 13:40 by MINA Cade) Cervical cancer screening Breast cancer screening Muscle spasm Shoulder pain Encounter for general adult medical examination with abnormal findings Colon cancer screening Encounter for routine gynecological examination Women's annual routine gynecological examination Surgical History History of bilateral tubal ligation Family History Mother Breast cancer Cancer of spine Social History Housing: House Alcohol intake: never Patient Tobacco Use Status: Never used Tobacco e-Cigarette/Vaping Use: Never Used service: No Current occupational status: employed 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 Cognitive needs: No Hearing needs: No Vision needs: No Female Reproductive History Menstrual Age of Menarche: 17 Review of Systems Const Denies fatigue, Denies fever(s), Denies night sweats, Denies poor appetite and Denies weight loss ENT Reports Normal hearing present, Denies dental pain, Denies dysphagia, Denies hearing loss, Denies mouth pain, Denies odynophagia, Denies throat swelling, Denies tongue swelling and Reports other (Dentition adequate) Card Reports no additional complaints Resp Reports no additional complaints GI Details: Denies abdominal pain, Denies melena, Reports bloating, Denies hematochezia, Denies constipation, Denies GI cramping, Denies dysphagia, Denies excessive flatus, Denies early satiety, Denies heartburn, Denies diarrhea, Denies nausea, Denies odynophagia, Denies vomiting and Denies hematemesis Skin/Breast Denies pruritus, Denies lesions, Denies rash and Denies jaundice Neuro Reports Normal hearing present and Denies Abnormal speech present Endo Denies fatigue Aller/Immun Denies throat swelling and Denies tongue swelling Physical Exam Vital Signs: Last Vital Signs Pulse 94 01/06/24 13:12 BP 116/76 01/06/24 13:12 BMI result Body Mass Index 23.2 Const General: cooperative, no acute distress, well developed and well groomed Nutritional Appearance: average body habitus and well nourished Orientation/consciousness: oriented to person, oriented to place and oriented to time Limitations: No language barrier HEENT Head: Yes normocephalic and Yes atraumatic Eyes General: appearance normal, both eyes and all related structures Pupils: Equal, round and reactive pupils present Neck Neck: Yes normal visual inspection and Yes no lymphadenopathy Thyroid: Thyroid normal Resp Effort & Inspection: normal respiratory effort and able to speak in complete sentences Auscultation: clear to auscultation bilaterally Cardio Rate: regular rate Rhythm: regular rhythm Heart sounds: Normal, physiologic split S2 sound present Peripheral pulses: radial pulses present and posterior tibial pulses present GI Inspection: No distended and No Abdominal panniculus present Palpation (GI): Soft to palpation, nontender, no guarding, not rigid and No hepatosplenomegaly present Percussion: Yes normal to percussion Auscultation: normal bowel sounds Rectal Exam - Female: deferred Skin General skin exam: no rashes or lesions noted, turgor normal, skin not dry, no jaundice, No spider nevi and no striae Rashes: no rashes Nails: normal Neuro General: oriented to person, oriented to place and oriented to time Cranial nerves: Yes Equal, round and reactive pupils present and Yes Normal hearing present Speech: No Abnormal speech present Extrem General: Yes normal to inspection, No clubbing, No cyanosis and No edema Psych Appearance: grossly normal and well kempt Mental Status: mental status grossly normal Speech and movement: Normal speech and movement present Affect: normal affect Attitude: cooperative Thought process: Normal thought process present and not confabulating Thought content: Normal thought content present Insight: Good insight present (Psych) Judgement: Good judgement present (Psych) Assessment & Plan Assessment & Plan (1) Pre-op examination: Code(s): Z01.818 - Encounter for other preprocedural examination Category: Medical (2) Abdominal bloating: Code(s): R14.0 - Abdominal distension (gaseous) Category: Medical Plan She has developed problems with gas that manifests as belching, [id number], pain and flatulence. This has been for a few years. It seems to be she also has success with fennel and ganthoda powder. . She is vegetarian and would not like a porcine derived enzyme. In the past she had trouble being anesthetized and she would have pain during surgery but epidurals worked well. She denies any cardiac or respiratory problems NO ID problems No known FHX crc or polyps. Orders: Orders Colonoscopy - GI Use Only 01/06/24 Z01.818 - Encounter for other preprocedural examination Medications: New peg 3350-electrolytes 236-22.74-6.74 -5.86 gram (Golytely) until fecal effluent is clear; do not exceed a total volume of 2,000 mL 240 mL PO Q10M 4,000 mL 0RF 1 day Z12.11 - Encounter for screening for malignant neoplasm of colon bisacodyl (Dulcolax (bisacodyl)) 10 mg (2 x 5 mg) PO BEDTIME 4 tabs 0RF 2 days Coding Level of Care Code New Pt Level 3 (47553) Diagnoses Pre-op examination Z01.818 Abdominal bloating R14.0
== END 2024-01-06 14:19 | disposition home or self-care (01) ==
PROVIDERS: PCP Internal Medicine; Visit Provider Nurse Practitioner
DX: Z01.818 Encounter for other preprocedural examination (principal); R14.0 Abdominal distension (gaseous)
CPT/HCPCS: 99203

== ENCOUNTER → 2024-01-06 12:39 | Outpatient (BNVA) | payer OTHER, SELFPAY | PROVIDERS: PCP Internal Medicine; Visit Provider Nurse Practitioner | DX: Z01.818 Encounter for other preprocedural examination (principal); R14.0 Abdominal distension (gaseous) | CPT/HCPCS: 99202 ==

== ENCOUNTER 2024-09-06 09:22 | Day surgery (SDC) | payer OTHER, SELFPAY ==
--- OUTSIDE RECORDS SUMMARY | 2024-07-12 08:55 | XMS_ITS | Clinical Summary ---
Author Organization [facility] Address [address] [place] [address] Care Team Providers Care Creative Arts Music Therapist Name Role Phone Unknown, Primary Care Provider Unavailabl e Social History Tobacco Use Types Packs/Day Years Used Date Smoking Tobacco: Never Assessed Sex and Gender Information Value Date Recorded Sex Assigned at Not on file Gender Identity Not on file Sexual Orientation Not on file Job Start Date Occupation Industry Not on file Not on file Not on file Plan of Treatment Health Maintenance Due Date Last Done Comments Hepatitis B Vaccines (1 of 3 - 3-dose series) 1972 Hepatitis C Screening 1970 COVID-19 Vaccine (#1) 1972 Depression Screening 1984 Preventative Health Evaluation 01/13/1990 DTap / Tdap / Td (1 - Tdap) 01/13/1991 Cervical Cancer Screening (P ap Smear) 01/13/1993 Colon Cancer Screening (Colonoscopy) 01/13/2017 Breast Cancer Screening (Mammogram) 01/13/2022 Shingrix-Zoster Vaccine (1 of 2) 01/13/2022 Influenza Vaccine (#1) 2024 Pneumococcal Vaccine Aged Out No long er eligible based on patient's age to complete this topic RSV Ped < 20 months Aged Out No longe r eligible based on patient's age to complete this topic Care Teams Creative Arts Music Therapist Relationship Specialty Start Date End Date Unknown, PCP - General 12/03/20
[2024-07-13 13:03] VITALS: BMI 23.2
--- NOTE | 2024-07-16 13:02 | HO.ANESPROP2 ---
HPI - Anesthesia Eval Consult details Narrative: 54yo F for Colonoscopy PMFSH Active Problems Active Problems: All Active Problems Abdominal bloating (Acute) Pre-op examination (Acute) Vitamin D deficiency (Acute) Premature menopause (Acute) Degenerative arthritis of knee, bilateral (Acute) Subacromial bursitis of right shoulder joint (Acute) Strain of right trapezius muscle (Acute) Shoulder impingement syndrome (Acute) Past Medical History Medical History (Updated 01/06/24 @ 13:40 by MINA Cade) Cervical cancer screening Breast cancer screening Muscle spasm Shoulder pain Encounter for general adult medical examination with abnormal findings Colon cancer screening Encounter for routine gynecological examination Women's annual routine gynecological examination Family History Family History Mother Breast cancer Cancer of spine Surgical History Surgical History History of bilateral tubal ligation Social History Social History Housing: House Alcohol intake: never Patient Tobacco Use Status: Never used Tobacco e-Cigarette/Vaping Use: Never Used service: No Current occupational status: employed 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 Cognitive needs: No Hearing needs: No Vision needs: No Meds Allergies Allergy/AdvReac Type Severity Reaction Status Date / Time No Known Allergies Allergy Verified 01/06/24 13:34 [No Known Allergies*] Home Medications ?Medication ?Instructions ?Recorded ?Confirmed ?Last Taken ?Type calcium carbonate 500 mg PO DAILY 01/06/24 Unknown History cholecalciferol (vitamin D3) 125 mcg PO 01/06/24 Unknown History mcg (5,000 unit) disintegrating tablet riboflavin (vitamin B2) 25 mg 25 mg PO DAILY 01/06/24 Unknown History tablet Exam Height,Weight and Vital Signs: Height 5 ft 1 in Weight 55.6 kg Assessment and Plan Assessment Anesthesia Assessment: Chart Reviewed
--- NOTE | 2024-09-05 09:23 | P.CONAN_ITS ---
Documented by User: Amna Fischer NP 09/05/24 09:24 HPI - Anesthesia Eval Consult details Narrative: 54yo F for Colonoscopy PMFSH Active Problems Active Problems: All Active Problems Abdominal bloating (Acute) Pre-op examination (Acute) Vitamin D deficiency (Acute) Premature menopause (Acute) Degenerative arthritis of knee, bilateral (Acute) Subacromial bursitis of right shoulder joint (Acute) Strain of right trapezius muscle (Acute) Shoulder impingement syndrome (Acute) Past Medical History Medical History Cervical cancer screening Breast cancer screening Muscle spasm Shoulder pain Encounter for general adult medical examination with abnormal findings Colon cancer screening Encounter for routine gynecological examination Women's annual routine gynecological examination Family History Family History Mother Breast cancer Cancer of spine Surgical History Surgical History History of bilateral tubal ligation Social History Social History Housing: House Alcohol intake: never Patient Tobacco Use Status: Never used Tobacco e-Cigarette/Vaping Use: Never Used Use of substances other than those prescribed or required for medical reasons: No Are you DNR?: No Advance Directives: No Advance Directives Information Provided: Yes service: No Current occupational status: employed 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 Cognitive needs: No Hearing needs: No Vision needs: No Meds Allergies Allergy/AdvReac Type Severity Reaction Status Date / Time No Known Allergies Allergy Verified 01/06/24 13:34 [No Known Allergies*] Home Medications ?Medication ?Instructions ?Recorded ?Confirmed ?Last Taken ?Type calcium carbonate 500 mg PO DAILY 01/06/24 Unknown History cholecalciferol (vitamin D3) 125 mcg PO 01/06/24 Unknown History mcg (5,000 unit) disintegrating tablet riboflavin (vitamin B2) 25 mg 25 mg PO DAILY 01/06/24 Unknown History tablet Exam Height,Weight and Vital Signs: Height 5 ft 1 in Weight 55.6 kg Assessment and Plan Assessment Anesthesia Assessment: Chart Reviewed Documented by User: Caprice Holley MD 09/06/24 12:38 COUNTS INCLUDE 234 BEDS AT THE [facility] Past Medical History Medical History Cervical cancer screening Breast cancer screening Muscle spasm Shoulder pain Encounter for general adult medical examination with abnormal findings Colon cancer screening Encounter for routine gynecological examination Women's annual routine gynecological examination Family History Family History Mother Breast cancer Cancer of spine Family history of problems with anesthesia: No Surgical History Surgical History History of bilateral tubal ligation History of Problems with Anesthesia: No Social History Social History Housing: House Alcohol intake: never Patient Tobacco Use Status: Never used Tobacco e-Cigarette/Vaping Use: Never Used Use of substances other than those prescribed or required for medical reasons: No Are you DNR?: No Advance Directives: No Advance Directives Information Provided: Yes service: No Current occupational status: employed 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 Cognitive needs: No Hearing needs: No Vision needs: No Meds Allergies Allergy/AdvReac Type Severity Reaction Status Date / Time No Known Allergies Allergy Verified 01/06/24 13:34 [No Known Allergies*] Home Medications ?Medication ?Instructions ?Recorded ?Confirmed ?Last Taken ?Type calcium carbonate 500 mg PO DAILY 01/06/24 Unknown History cholecalciferol (vitamin D3) 125 mcg PO 01/06/24 Unknown History mcg (5,000 unit) disintegrating tablet riboflavin (vitamin B2) 25 mg 25 mg PO DAILY 01/06/24 Unknown History tablet Exam Height,Weight and Vital Signs: Height 5 ft 1 in Weight 55.6 kg Vital Signs Temp Pulse Resp BP Pulse Ox O2 Del Method 09/06/24 10:55 97.9 F 71 16 127/75 100 Room Air Airway Mallampati Class: II TM Dist: >3cm Neck ROM: Full Loose/Missing/Broken Teeth: No (Dental implants intact. Denies broken, loose, m issing teeth) Heart: RRR ?murmur Lungs: CTAB Assessment and Plan Assessment Anesthesia Assessment: Anesthesia Plan Discussed and Chart Reviewed Final Anesthetic Review Family History of Problems with Anesthesia: No History of Problems with Anesthesia: No NPO: Yes ASA Class: II Final Preanesthetic Review: No Changes in Pt Med Stat, Meds/Allgs Chart Reviewed, Consent Obtained/Reviewed and Anes Risks/Benef Reviewed Patient Risk: Low Procedure Risk: Low Assessment/Block/Sedation in SS: Assess/Block/Sedation-SS Anesthetic Plan Anesthetic Plan: TIVA Disposition: Standard PACU
[2024-09-06 10:55] VITALS: BP 127/75; PULSE 71; RESP 16; TEMP 36.6; O2SAT 100
--- NOTE | 2024-09-06 10:56 | MHC.SHP ---
Pre-Procedural Eval Section A - 24 Hr Update-Section A only Date of Service: 09/06/24 Section B - Complete if H&P > 30 days Chief Complaint: Abdominal distension (gaseous) Details of Present Illness: PMX Shoulder pain/bursitis * SURGICAL HISTORY Appendectomy Tubal ligation * Present Medications: see Short Stay Collaborative assessment Allergies: Allergies Allergy/AdvReac Type Severity Reaction Status Date / Time No Known Allergies Allergy Verified 01/06/24 13:34 [No Known Allergies*] Review of Systems Review of Systems Comment: Ten point ROS negative Exam Exam Comment: Gen appear: No acute distress HEENT: no icterus Chest: No overt resp distress Abd: soft, nontender, nondistended Psych: Stable affect, answering questions appropriately Neuro: A/Ox3 noted to move all extremities spontaneously Ext: no peripheral edema Plan Diagnosis/Plan: Unchanged I have reviewed the history and physical and performed a pertinent physical examination on my patient. No changes have occurred unless specified. Time Spent With Patient Time: Total time managing care of this patient today ____ minutes.
[2024-09-06] MEDS: Lactated Ringers 1,000 ML 100 ML IVCONT (10:58)
--- NOTE | 2024-09-06 12:56 | P.OPN-COLO_ITS ---
Colonoscopy Operative Note Operative Note Date of Service: 09/06/24 Narrative: Procedure: Colonoscopy Indication: Screening Endoscopist: Emmy Augustin MD Anesthesia Provider: Dr Caprice Holley Anesthesia type: MAC Instrument: Olympus [id number]-[id number] Consent: Indication, risks vs benefits, and alternatives were discussed with the patient who gave written informed consent to proceed. EKG, pulse, pulse oximetry and blood pressure were monitored throughout the procedure. Please see anesthesia flowsheet. Procedure: The patient was brought to the procedure room and placed in the left lateral decubitus position. IV medications were administered by the anesthesia provider in attendance. A digital rectal exam was performed which was normal. A distal attachment cap was affixed to the tip of the colonoscope which was then inserted through the anus and advanced through the colon to the cecum at 75 cm,and terminal ileum. Appendiceal orifice and ileocecal valve were identified. Mucosa was carefully examined under high definition white light as the instrument was slowly withdrawn in a retrograde panoramic fashion. Retroflexion was performed in rectum. The procedure was not difficult. There were no immediate obvious complications. The quality of the prep was BBPS: 3+3+2 = adequate Withdrawal time 6 minutes. Limitations: No limitations. Findings: Mucosa: Normal to cecum and terminal ileum. Protruding lesions: * 1 sessile polyp of size 2 mm in descending colon. Cold snare polypectomy was performed. The polyp was completely removed and retrieved. * Medium internal hemorrhoids without stigmata of recent bleeding. Impression: 1. Normal colon mucosa 2. Total of 1 polyp removed 3. Hemorrhoids Recommendations: - Follow path results. - Repeat colonoscopy in 7-10 years if polyp is an adenoma.
[2024-09-06 13:00] VITALS: BP 90/39; PULSE 75; RESP 18; TEMP 36.2; O2SAT 98
[2024-09-06 13:15] VITALS: BP 95/54; PULSE 63; RESP 16; O2SAT 100
[2024-09-06 13:30] VITALS: BP 134/72; PULSE 66; RESP 18; TEMP 36.3; O2SAT 100
== END 2024-09-06 14:30 | disposition home or self-care (01) ==
PROVIDERS: PCP Internal Medicine; Visit Provider Internal Medicine
PROC: 0DJD8ZZ Inspection of Lower Intestinal Tract, Via Natural or Artificial Opening Endoscopic (ICD-10-PCS; CPT 45378; principal; 2024-09-06 12:20)
DX: Z12.11 Encounter for screening for malignant neoplasm of colon (principal); K63.5 Polyp of colon; K64.8 Other hemorrhoids
CPT/HCPCS: 45385; 88305

== ENCOUNTER → 2024-09-06 09:22 | Outpatient (BNV) | payer OTHER, SELFPAY | PROVIDERS: PCP Internal Medicine; Visit Provider Internal Medicine | DX: Z12.11 Encounter for screening for malignant neoplasm of colon (principal); K63.5 Polyp of colon; K64.8 Other hemorrhoids | CPT/HCPCS: 45385 ==

== ENCOUNTER 2024-10-24 11:02 | Outpatient (AMB) | payer OTHER, SELFPAY ==
--- NOTE | 2024-10-24 11:07 | A.OFFPC_ITS ---
Vital Signs 10/24/24 11:09 Height 5 ft 2 in Weight 118 lb BMI 21.6 BP 110/74 Blood Pressure Location Rt brachial Position Sitting Respiration 16 Pulse 70 Pulse Source Pulse Oximeter Temp 97.9 F Temp Source Oral Pulse Oximetry (%) 99 Oxygen Delivery Method Room Air Intake Visit Reasons: Annual PE Allergies No Known Allergies [No Known Allergies*] Allergy (Verified 10/24/24 11:07) Medication List - Last Reconciled 10/24/24 by Александр Manriquez MD bisacodyl (Dulcolax (bisacodyl)) 10 mg (2 x 5 mg) PO BEDTIME 2 days calcium carbonate 500 mg PO DAILY cholecalciferol (vitamin D3) mcg PO riboflavin (vitamin B2) 25 mg PO DAILY Tobacco use date assessed: 10/24/24 Dental Screening Dental Screen Date: 10/24/24 Did you have a dental visit in the last 12 months?: No Did you have a dental problem in the last 6 months where you did not have access to dental care?: No Was dental information given to patient?: Patient declined HPI Annual PE HPI Details Physical exam appointment - The patient is a 54-year-old female pr esenting with persistent headaches. - The patient reports experiencing heada ches consistently over the last 15 to 20 days. - The headaches are described as constan t and sometimes severe, rated as 10/11 on a scale, causing significant discomfort to the point of wanting to put her head against the wall. - Headaches are present upon waking and sometimes associated with a feeling described as busy but not vertigo or dizziness. - The patient has a prior history of elodia summer headaches - Menopause began approximately seven to eight years ago, with no periods since then. - The patient has been using over-the-co unter medication such as Tylenol and occ asionally Advil, without significant relief of the symptoms. - Consumes approximately 2.5 liters of w ater daily; rules out dehydration as a potential cause. - No associated symptoms such as visual disturbances, nausea, vomiting, sneezing, or postnasal drip. Medical History: - History of migraine headaches - Osteopenia with a T-score of -2.4 - Low Vitamin D levels - Hyperplastic polyp identified last tue during colonoscopy this year by Dr. 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 Diagnostic results - Colonoscopy: Hyperplastic polyp with m ild surface hyperplastic changes, hemorrhoids noted - Bone density scan: T-score of -2.4, in dicating osteopenia - Blood tests: Normal kidney function, m etabolic profile, LDL of 122, low Vitamin D Patient Instructions - Continue vitamin D supplementation con sistently - Engage in regular weight-bearing exerc ises for osteopenia - Ensure comprehensive hydration with at least 2.5 liters of water daily - Meet dietary recommendations with calc ium-rich food - Avoid exacerbating or triggering facto rs for headache such as eye strain - Use Tylenol or Advil as needed for hea dache relief - Obtain routine eye exams annually - Engage in relaxation techniques to kobe igate headaches - [facility] and medication effectiveness - take meclizine [id number] 25 mg in the morning for vertigo - amitriptyline 10 mg at night as a head ache prevention - return in 3 weeks for follow-up appoin tment Review of Systems - General: No fever no chills - Ear nose throat: No sore throat no hearing difficulty no ear pain - Cardiovascular: No syncope, no chest pain, no palpitations - Gastrointestinal: No nausea vomiting or diarrhea - Endocrine: No polyuria polydipsia no heat intolerance - Genitourinary: No dysuria - Skin: No new complaints Physical Exam General: Cooperative, healthy appearing, comfortable, no acute distress Orientation: Patient oriented x3 Head: Normal to inspection and palpation Ears: Within normal limit visually, vertigo diagnosed Nose: Normal external nose present Face and sinus: Normal facial exam Eyes: Appearance normal, extraocular movement intact pupils reactive, history of laser surgery in 2019 Neck: Normal visual inspection and supple no lymph nodes no thyromegaly Respiratory: Normal respiratory effort and able to speak in complete sentences. Clear to auscultation, no stridor Cardiovascular: S1 and S2 RRR Breast exam benign GI: Normal to inspection. Soft to palpation and nontender Skin: Turgor normal, no acute findings Neuro: Patient oriented x3, motor sensory intact, vertigo test positive Extremities: Normal to inspection, full range of motion [facility] Medical History Encounter for general adult medical examination with abnormal findings Cervical cancer screening Breast cancer screening Muscle spasm Shoulder pain Colon cancer screening Encounter for routine gynecological examination Women's annual routine gynecological examination Surgical History History of bilateral tubal ligation Family History Mother Breast cancer Cancer of spine Social History Housing: House Alcohol intake: never Patient Tobacco Use Status: Never used Tobacco e-Cigarette/Vaping Use: Never Used service: No Current occupational status: employed 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 1. Little interest or pleasure in doing things: not at all 2. Feeling down, depressed, or hopeless: not at all 3. Trouble falling or staying asleep, or sleeping too much: several days 4. Feeling tired or having little energy: not at all 5. Poor appetite or overeating: not at all 6. Feeling bad about yourself - or that you are a failure or have let yourself or your family down: not at all 7. Trouble concentrating on things, such as reading the newspaper or watching television: not at all 8. Moving or speaking so slowly that other people could have noticed. Or the opposite - being so fidgety or restless that you have been moving around a lot more than usual: not at all 9. Thoughts that you would be better off or of hurting yourself in some way: not at all Total score: 1 Depression Screening Interpretation: Negative Depression Screening Done: Yes 00621 - PHQ-9 Billing: Yes Source: Developed by Drs. Oc Chan, Siomara Alvarez, Gregg Durham and colleagues, with an educational annia from [employer]. Thrive Questionnaire Date Thrive assessed: 10/04/23 I am a: Patient What is your living situation today?: I choose not to answer this question Within the past 12 months, did the food you bought not last and you didn't have the money to get more?: Never true Within the past 12 months, did you worry whether your food would run out before you got money to buy more?: Never true Do you have trouble paying for medicines?: No Do you have trouble getting transportation to medical appointments?: No Do you have trouble paying your heating and electricity bill?: No Do you have trouble taking care of your child, family member or friend?: No Do you have trouble with day-to-day activities such as bathing, preparing meals, shopping, managing finances, etc.?: No Are you currently unemployed and looking for a job?: No Are you interested in more education?: No Please select the resources that you would like help with: None Currently or been in a relationship where the following occur: I choose not to answer THRIVE Score: 0 AUDIT C Alcohol Use Questionnaire (AUDIT-C) 1. How often do you have a drink containing alcohol?: Never Total Score: 0 CATHERINE-7 AMB Questionnaire CATHERINE-7 Date CATHERINE - 7 assessed: 10/04/23 Feeling nervous, anxious, or on edge: 0 = Not at all Not being able to stop or control worryin = Not at all Worrying too much about different things: 0 = Not at all Trouble relaxin = Not at all Being so restless that it is hard to sit still: 0 = Not at all Becoming easily annoyed or irritable: 0 = Not at all Feeling afraid as if something awful might happen: 0 = Not at all Total CATHERINE-7 score (0-4 normal; 5-9 mild; 10-14 moderate; 15-21 severe): 0 Source: Developed by Drs. Oc Chan, Siomara Alvarez, Gregg Durham and colleagues, with an educational annia from [employer]. Physical exam (Primary Care) Vital Signs: Last Vital Signs Temp 97.9 F 10/24/24 11:09 Pulse 70 10/24/24 11:09 Resp 16 10/24/24 11:09 BP 110/74 10/24/24 11:09 Pulse Ox 99 10/24/24 11:09 Oxygen Delivery Method Room Air 10/24/24 11:09 BMI result Body Mass Index 21.6 Tobacco/Smoking Status: Tobacco use Status Tobacco use date assessed 10/24/24 10/24/24 11:07 Patient Tobacco Use Status Never used Tobacco 10/24/24 11:07 e-Cigarette/Vaping Use Never Used 10/24/24 11:07 PHQ-9: PHQ-9 Score PHQ-9: Total score 1 10/24/24 11:07 Depression Screening Interpretation: Negative Thrive Assessment: Date of Thrive Assessment Date Thrive assessed 10/04/23 10/24/24 11:07 Currently or been in a relationship where the following occur: I choose not to answer Coding Level of Care Code Est Pt Level 4 (88734) Est Pt Prev Care 40-64y(11969) Diagnoses Encounter for general adult medical examination with abnormal findings Z00.01 Benign paroxysmal positional vertigo, unspecified laterality H81.10 Laterality: unspecified laterality Headache syndrome G44.89 Vitamin D deficiency E55.9 History of migraine Z86.69 Premature menopause E28.319 Osteopenia, unspecified location M85.80 Osteopenia location: unspecified Tooth sensitivity K03.89 Additional Codes PHQ-9 - 36481 - PHQ-9 Billing: Yes ([id number]) Assessment & Plan Assessment & Plan (1) Encounter for general adult medical examination with abnormal findings: Code(s): Z00.01 - Encounter for general adult medical examination with abnormal findings Category: Medical (2) Benign positional vertigo: Code(s): H81.10 - Benign paroxysmal vertigo, unspecified ear Category: Medical Qualifiers: Laterality: unspecified laterality Qualified Code(s): H81.10 - Benign paroxysmal vertigo, unspecified ear (3) Headache syndrome: Code(s): G44.89 - Other headache syndrome Category: Medical (4) Vitamin D deficiency: Code(s): E55.9 - Vitamin D deficiency, unspecified Category: Medical (5) History of migraine: Code(s): Z86.69 - Personal history of other diseases of the nervous system and sense organs Category: Medical (6) Premature menopause: Code(s): E28.319 - Asymptomatic premature menopause Category: Medical (7) Osteopenia: Code(s): M85.80 - Other specified disorders of bone density and structure, unspecified site Category: Medical Qualifiers: Osteopenia location: unspecified Qualified Code(s): M85.80 - Other specified disorders of bone density and structure, unspecified site (8) Tooth sensitivity: Code(s): K03.89 - Other specified diseases of hard tissues of teeth Category: Medical Plan Physical exam appointment - The patient is a 54-year-old female presenting with persistent headaches. - The patient reports experiencing headaches consistently over the last 15 to 20 days. - The headaches are described as constant and sometimes severe, rated as 10/11 on a scale, causing significant discomfort to the point of wanting to put her head against the wall. - Headaches are present upon waking and sometimes associated with a feeling described as busy but not vertigo or dizziness. - The patient has a prior history of migraine headaches - Menopause began approximately seven to eight years ago, with no periods since then. - The patient has been using tnue-jua-ofbellw medication such as Tylenol and occasionally Advil, without significant relief of the symptoms. - Consumes approximately 2.5 liters of water daily; rules out dehydration as a potential cause. - No associated symptoms such as visual disturbances, nausea, vomiting, sneezing, or postnasal drip. Medical History: - History of migraine headaches - Osteopenia with a T-score of -2.4 - Low Vitamin D levels - Hyperplastic polyp identified last month during colonoscopy this year by Dr. 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 Diagnostic results - Colonoscopy: Hyperplastic polyp with mild surface hyperplastic changes, hemorrhoids noted - Bone density scan: T-score of -2.4, indicating osteopenia - Blood tests: Normal kidney function, metabolic profile, LDL of 122, low Vitamin D Patient Instructions - Continue vitamin D supplementation consistently - Engage in regular weight-bearing exercises for osteopenia - Ensure comprehensive hydration with at least 2.5 liters of water daily - Meet dietary recommendations with calcium-rich food - Avoid exacerbating or triggering factors for headache such as eye strain - Use Tylenol or Advil as needed for headache relief - Obtain routine eye exams annually - Engage in relaxation techniques to mitigate headaches - Schedule follow-up in three weeks to assess symptom improvement and medication effectiveness - take meclizine [id number]-[id number] 25 mg in the morning for vertigo - amitriptyline 10 mg at night as a headache prevention - return in 3 weeks for follow-up appointment Orders: Orders Complete Blood Count Auto Diff Today E28.319 - Asymptomatic premature menopause, E55.9 - Vitamin D deficiency, unspecified, Z00.01 - Encounter for general adult medical examination with abnormal findings, Z86.69 - Personal history of other diseases of the nervous system and sense organs Vitamin D 25-OH (D2 and D3) Today E28.319 - Asymptomatic premature menopause, E55.9 - Vitamin D deficiency, unspecified, Z00.01 - Encounter for general adult medical examination with abnormal findings, Z86.69 - Personal history of other diseases of the nervous system and sense organs Comprehensive [place]. Panel Fast Today E28.319 - Asymptomatic premature menopause, E55.9 - Vitamin D deficiency, unspecified, Z00.01 - Encounter for general adult medical examination with abnormal findings, Z86.69 - Personal history of other diseases of the nervous system and sense organs Lipid Panel Today E28.319 - Asymptomatic premature menopause, E55.9 - Vitamin D deficiency, unspecified, Z00.01 - Encounter for general adult medical examination with abnormal findings, Z86.69 - Personal history of other diseases of the nervous system and sense organs Medications: New amitriptyline 10 mg PO BEDTIME 30 tabs 0RF
[2024-10-24 11:09] VITALS: BP 110/74; PULSE 70; RESP 16; TEMP 36.6; O2SAT 99; BMI 21.6
--- OUTSIDE RECORDS SUMMARY | 2024-10-24 12:37 | XMS_ITS | Clinical Summary ---
Author Organization [facility] Address [address] [place] [address] Care Team Providers Care Prepper Name Role Phone Unknown, Primary Care Provider [...] Vaccine (1 of 2) 01/13/2022 Influenza Vaccine (Season Ended) 2025 Pneumococcal Vaccine Aged Out No long er eligible based on patient's age to complete this topic RSV Ped < 20 months Aged Out No longe r eligible based on patient's age to complete this topic Care Teams Prepper Relationship Specialty Start Date End Date UnknownMd PCP - General 12/03/20
== END 2024-10-24 11:36 | disposition home or self-care (01) ==
LOC: HO.HMCC 11:03
PROVIDERS: PCP Internal Medicine; Visit Provider Internal Medicine
DX: Z00.01 Encounter for general adult medical examination with abnormal findings (principal); G44.89 Other headache syndrome; E55.9 Vitamin D deficiency, unspecified; Z86.69 Personal history of other diseases of the nervous system and sense organs; E28.319 Asymptomatic premature menopause; M85.80 Other specified disorders of bone density and structure, unspecified site; H81.10 Benign paroxysmal vertigo, unspecified ear

== ENCOUNTER 2024-10-24 11:02 | Outpatient (REF) | payer OTHER, SELFPAY ==
[2024-10-24 13:20] LABS: MANUAL DIFF FLAG NO
[2024-10-24 13:23] LABS: Basophils Percent Auto 0.2 % (0-2); Eosinophils Percent Auto 0.6 % (0-4); Hemoglobin 12.3 g/dl (12.0-16.0); Imm Gran Abs Auto 0.01 X10*3/uL (0.00-0.03); Imm Gran Pct Auto 0.2 % (0.0-0.4); Lymphocytes Absolute Auto 2.1 X10*3/uL (1.2-4.9); Lymphocytes Percent Auto 45.5 % (20-40); Mean Corpuscular HGB Conc 32.4 g/dl (31.0-35.0); Mean Corpuscular Hemoglobin 29.6 pg (27.0-33.0); Mean Corpuscular Volume 91.6 fL (80.0-98.0); Mean Platelet Volume 10.6 fL (9.4-12.3); Monocytes Absolute Auto 0.3 X10*3/uL (0.1-1.2); Monocytes Percent Auto 5.8 % (2-11); Neutrophils Absolute Auto 2.2 x10*3/uL (2.0-8.3); Neutrophils Percent Auto 47.7 % (45-73); Platelet Count 224 X10*3/uL (160-400); Red Blood Count 4.15 X10*6/uL (4.20-5.50); Red Cell Distribution Width 12.3 % (11.0-16.0); White Blood Count 4.7 X10*3/uL (4.8-10.8)
[2024-10-24 13:33] LABS: Alanine Aminotransferase 19 U/L (0-31); Albumin Level 5.2 g/dL (3.5-5.0); Alkaline Phosphatase 106 U/L (39-117); Anion Gap 13 (12-20); Aspartate Amino Transferase 22 U/L (5-31); Bilirubin Total 0.7 mg/dL (0.0-1.0); Blood Urea Nitrogen 14 mg/dL (9-16); Calcium 10.1 mg/dL (8.4-10.2); Carbon Dioxide 28 mmol/L (22-29); Chloride 103 mmol/L (96-108); Cholesterol 242 mg/dL (<200); Estimated Glomerular Filt Rate > 60; Glucose Fasting 92 mg/dL (60-99); HDL Cholesterol 61 mg/dL (>40); LDL Cholesterol Calculated 149 mg/dL (<100); Potassium 3.8 mmol/L (3.3-5.1); Sodium 140 mmol/L (135-145); Total Protein 7.7 g/dL (6.5-8.0); Triglycerides 162 mg/dL (<150)
[2024-10-30 05:39] LABS: Vitamin D 25-OH, D2 <4 ng/mL; Vitamin D 25-OH, D3 31 ng/mL; Vitamin D 25-OH, Total 31 ng/mL (30-100)
== END 2024-10-24 11:03 | disposition home or self-care (01) ==
LOC: HO.HMGCLDS 11:02
PROVIDERS: PCP Internal Medicine; Visit Provider Internal Medicine
DX: Z00.01 Encounter for general adult medical examination with abnormal findings (principal); H81.10 Benign paroxysmal vertigo, unspecified ear; G44.89 Other headache syndrome; E55.9 Vitamin D deficiency, unspecified; E28.319 Asymptomatic premature menopause; M85.80 Other specified disorders of bone density and structure, unspecified site; K03.89 Other specified diseases of hard tissues of teeth; Z86.69 Personal history of other diseases of the nervous system and sense organs
CPT/HCPCS: 36415; 80053; 80061; 82306; 85025; 96127; 99212; 99396

== ENCOUNTER 2024-11-14 11:09 | Outpatient (AMB) | payer OTHER, SELFPAY ==
--- NOTE | 2024-11-14 11:14 | A.OFFPC_ITS ---
Vital Signs 11/14/24 11:15 Height 5 ft 2 in Weight 119 lb BMI 21.8 BP 110/70 Blood Pressure Location Lt brachial Position Sitting Pulse 66 Pulse Source Pulse Oximeter Temp 98.0 F Temp Source Oral Pulse Oximetry (%) 97 Intake Visit Reasons: 3 weeks f/up Allergies No Known Allergies (No Known Allergies*) Allergy (Verified 11/14/24 11:16) Medication List - Last Reconciled 11/14/24 by Александр Manriquez MD amitriptyline 10 mg PO BEDTIME calcium carbonate 500 mg PO DAILY cholecalciferol (vitamin D3) mcg PO riboflavin (vitamin B2) 25 mg PO DAILY Tobacco use date assessed: 10/24/24 Dental Screening Dental Screen Date: 10/24/24 HPI 3 weeks f/up HPI Details History - The patient is a 54-year-old female pr esenting with follow-up for dizziness and headache. - At the last visit, the patient reporte d dizziness and headache, which have shown improvement. - The patient described no occurrence of dizziness after starting the treatment. With rqky-nxx-iluzkws meclizine - The headaches also improved after init iating amitriptyline, which the patient has since discontinued. - Initial lab results at the last visit indicated slightly elevated cholesterol levels. - Changes in LDL cholesterol were notabl e: it increased from 122 in August of the previous year to 149 currently. - Vitamin D levels were previously low b ut have now normalized. - Continued lifestyle management was adv ised for cholesterol levels considering the patient's family history. Medical History: - Prior diagnosis of dizziness and heada naya, now resolved. - Elevated cholesterol levels, currently at LDL of 149. - Previous Vitamin D insufficiency, now resolved. Medications: - Amitriptyline previously prescribed fo r headaches, currently discontinued. - Meclizine prescribed for dizziness, di scontinue. Social History: - The patient does not consume fried treva ds, ghee, or red meat. - Known consumption of nuts was advised for cholesterol management. - Exercise was suggested to assist with cholesterol control. - The patient mentioned occasional stres s due to caregiving responsibilities for her zqgntq-mo-upp. - The patient eats flaxseeds for cardiov ascular health benefits. - The patient expressed an interest in d iet control and is conscientious about her dietary intake. Family History: - Positive family history of hypercholes terolemia; both parents had elevated cholesterol levels. Diagnostic Results: - Labs: LDL cholesterol at 149; Vitamin D levels normalized; CBC normal with no anemia detected. Problem List - Dizziness and headache (resolved) - Hyperlipidemia - Previous Vitamin D deficiency (resolve d) Patient Instructions - Continue current dietary habits with e mphasis on reducing saturated fats and maintaining cholesterol management. - Engage in regular physical exercise to help manage cholesterol levels. - Consume nuts and flaxseed for their be neficial effects on cholesterol. - Consider keeping amitriptyline on hand for any potential recurrence of headaches. - Plan to continue follow-up as needed b efore the next scheduled physical exam in October of the following year. - Alert to return if symptoms such as di zziness or severe headaches recur. Review of Systems - General: No fever no chills - Neurological: No headaches no dizziness - Ear nose throat: No sore throat no hearing difficulty no ear pain - Cardiovascular: No syncope, no chest pain, no palpitations - Gastrointestinal: No nausea vomiting or diarrhea - Endocrine: No polyuria polydipsia no heat intolerance - Genitourinary: No dysuria , no blood in urine Physical Exam - General: No acute distress - HEENT: No acute findings - Neck: Supple - Respiratory system: Able to talk in f ull sentences, no audible wheeze - Cardiovascular: S1-S2 regular in rate and rhythm - Gastrointestinal: No pain - Extremities: No new findings - SLIP MIXER: Alert awake oriented x3 motor se nsory intact - Skin: Normal turgor PFSH Medical History Encounter for general adult medical examination with abnormal findings Cervical cancer screening Breast cancer screening Muscle spasm Shoulder pain Colon cancer screening Encounter for routine gynecological examination Women's annual routine gynecological examination Surgical History History of bilateral tubal ligation Family History Mother Breast cancer Cancer of spine Social History Housing: House Alcohol intake: never Patient Tobacco Use Status: Never used Tobacco e-Cigarette/Vaping Use: Never Used service: No Current occupational status: employed 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 Cognitive needs: No Hearing needs: No Vision needs: Yes Female Reproductive History Menstrual Age of Menarche: 17 Questionnaire Thrive Questionnaire Date Thrive assessed: 11/14/24 I am a: Patient What is your living situation today?: I choose not to answer this question Within the past 12 months, did the food you bought not last and you didn't have the money to get more?: Never true Within the past 12 months, did you worry whether your food would run out before you got money to buy more?: Never true Do you have trouble paying for medicines?: No Do you have trouble getting transportation to medical appointments?: No Do you have trouble paying your heating and electricity bill?: No Do you have trouble taking care of your child, family member or friend?: No Do you have trouble with day-to-day activities such as bathing, preparing meals, shopping, managing finances, etc.?: No Are you currently unemployed and looking for a job?: No Are you interested in more education?: No Please select the resources that you would like help with: None Currently or been in a relationship where the following occur: I choose not to answer THRIVE Score: 0 CATHERINE-7 AMB Questionnaire CATHERINE-7 Date CATHERINE - 7 assessed: 11/14/24 Feeling nervous, anxious, or on edge: 0 = Not at all Not being able to stop or control worryin = Not at all Worrying too much about different things: 0 = Not at all Trouble relaxin = Not at all Being so restless that it is hard to sit still: 0 = Not at all Becoming easily annoyed or irritable: 0 = Not at all Feeling afraid as if something awful might happen: 0 = Not at all Total CATHERINE-7 score (0-4 normal; 5-9 mild; 10-14 moderate; 15-21 severe): 0 Source: Developed by Drs. Oc Chan, Siomara Alvarez, Gregg Durham and colleagues, with an educational annia from [employer]. CATHERINE-7 Assessment Billing CATHERINE-7 Assessment Tool: CATHERINE-7 Assessment 71536 Physical exam (Primary Care) Vital Signs: Last Vital Signs Temp 98.0 F 11/14/24 11:15 Pulse 66 11/14/24 11:15 BP 110/70 11/14/24 11:15 Pulse Ox 97 11/14/24 11:15 BMI result Body Mass Index 21.8 Tobacco/Smoking Status: Tobacco use Status Tobacco use date assessed 10/24/24 11/14/24 11:14 Patient Tobacco Use Status Never used Tobacco 11/14/24 11:14 e-Cigarette/Vaping Use Never Used 11/14/24 11:14 Thrive Assessment: Date of Thrive Assessment Date Thrive assessed 11/14/24 11/14/24 11:18 Currently or been in a relationship where the following occur: I choose not to answer Coding Level of Care Code Est Pt Level 3 (08060) Diagnoses Lipid disorder E78.9 Benign paroxysmal positional vertigo, unspecified laterality H81.10 Laterality: unspecified laterality Headache syndrome G44.89 History of migraine Z86.69 Additional Codes CATHERINE-7 Assessment Billing - CATHERINE-7 Assessment Tool: CATHERINE-7 Assessment 73645 ([id number]) Assessment & Plan Assessment & Plan (1) Lipid disorder: Code(s): E78.9 - Disorder of lipoprotein metabolism, unspecified Category: Medical (2) Benign positional vertigo: Code(s): H81.10 - Benign paroxysmal vertigo, unspecified ear Category: Medical Qualifiers: Laterality: unspecified laterality Qualified Code(s): H81.10 - Benign paroxysmal vertigo, unspecified ear (3) Headache syndrome: Code(s): G44.89 - Other headache syndrome Category: Medical (4) History of migraine: Code(s): Z86.69 - Personal history of other diseases of the nervous system and sense organs Category: Medical Plan History - The patient is a 54-year-old female presenting with follow-up for dizziness and headache. - At the last visit, the patient reported dizziness and headache, which have shown improvement. - The patient described no occurrence of dizziness after starting the treatment. With ocpo-vcm-riquuto meclizine - The headaches also improved after initiating amitriptyline, which the patient has since discontinued. - Initial lab results at the last visit indicated slightly elevated cholesterol levels. - Changes in LDL cholesterol were notable: it increased from 122 in August of the previous year to 149 currently. - Vitamin D levels were previously low but have now normalized. - Continued lifestyle management was advised for cholesterol levels considering the patient's family history. Medical History: - Prior diagnosis of dizziness and headache, now resolved. - Elevated cholesterol levels, currently at LDL of 149. - Previous Vitamin D insufficiency, now resolved. Medications: - Amitriptyline previously prescribed for headaches, currently discontinued. - Meclizine prescribed for dizziness, discontinue. Social History: - The patient does not consume fried foods, ghee, or red meat. - Known consumption of nuts was advised for cholesterol management. - Exercise was suggested to assist with cholesterol control. - The patient mentioned occasional stress due to caregiving responsibilities for her chwwev-an-toe. - The patient eats flaxseeds for cardiovascular health benefits. - The patient expressed an interest in diet control and is conscientious about her dietary intake. Family History: - Positive family history of hypercholesterolemia; both parents had elevated cholesterol levels. Diagnostic Results: - Labs: LDL cholesterol at 149; Vitamin D levels normalized; CBC normal with no anemia detected. Problem List - Dizziness and headache (resolved) - Hyperlipidemia - Previous Vitamin D deficiency (resolved) Patient Instructions - Continue current dietary habits with emphasis on reducing saturated fats and maintaining cholesterol management. - Engage in regular physical exercise to help manage cholesterol levels. - Consume nuts and flaxseed for their beneficial effects on cholesterol. - Consider keeping amitriptyline on hand for any potential recurrence of headaches. - Plan to continue follow-up as needed before the next scheduled physical exam in October of the following year. - Alert to return if symptoms such as dizziness or severe headaches recur. Medications: Refilled amitriptyline 10 mg PO BEDTIME 30 tabs 0RF
[2024-11-14 11:15] VITALS: BP 110/70; PULSE 66; TEMP 36.7; O2SAT 97; BMI 21.8
--- OUTSIDE RECORDS SUMMARY | 2024-11-14 11:54 | XMS_ITS | Clinical Summary ---
Author Organization [facility] Address [address] [place] [address] Care Team Providers Care Survey Party Chief Name Role Phone Unknown, Primary Care Provider [...] age to complete this topic Care Teams Survey Party Chief Relationship Specialty Start Date End Date UnknownMd PCP - General 12/03/20
== END 2024-11-14 11:27 | disposition home or self-care (01) ==
LOC: HO.HMCC 11:10
PROVIDERS: PCP Internal Medicine; Visit Provider Internal Medicine
DX: E78.9 Disorder of lipoprotein metabolism, unspecified (principal); H81.10 Benign paroxysmal vertigo, unspecified ear; G44.89 Other headache syndrome; Z86.69 Personal history of other diseases of the nervous system and sense organs

== ENCOUNTER → 2024-11-14 11:09 | Outpatient (BNVA) | payer OTHER, SELFPAY | PROVIDERS: PCP Internal Medicine; Visit Provider Internal Medicine | DX: R42 Dizziness and giddiness (principal); G44.89 Other headache syndrome; E78.9 Disorder of lipoprotein metabolism, unspecified; Z86.69 Personal history of other diseases of the nervous system and sense organs | CPT/HCPCS: 96127; 99212 ==

== ENCOUNTER 2025-04-19 10:22 | Outpatient (AMB) | payer OTHER, SELFPAY ==
--- NOTE | 2025-04-19 10:24 | MHC.OFFVIS ---
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 She is working less these stays outside the home because she is working more inside the home taking care of her aqbvkb-ps-iic and zppcaf-ea-jfe. Her icquwk-mc-pwy is home in hospice care currently so they both need lots of care. She is not sexually active anymore and has not been for many years as much because of her 's physical changes as her own. She feels it is fine for where she is in life. She eats very very healthy though she does find herself craving snacks at night. She thinks her last mammogram was last year does not know when the next 1 is planned. Her mother was diagnosed with breast cancer in her 50s and then it recurred some years later but when it recurred it had already metastasized to her spine. [facility] Medical History Encounter for general adult medical examination with abnormal findings Cervical cancer screening Breast cancer screening Muscle spasm Shoulder pain Colon cancer screening Encounter for routine gynecological examination Women's annual routine gynecological examination Surgical History History of bilateral tubal ligation Family History Mother Breast cancer Cancer of spine Social History Housing: House Alcohol intake: never Patient Tobacco Use Status: Never used Tobacco e-Cigarette/Vaping Use: Never Used service: No Current occupational status: employed 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 Cognitive needs: No Hearing needs: No Vision needs: Yes Female Reproductive History Menstrual Age of Menarche: 17 control method: permanent sterilization Menopause type: natural Total pregnancies: 2 Full term: 2 Date of last pap smear: 10/20/23 (insufficent, neg hpv ) History of abnormal pap smear: No Date of Mammogram: 11/22/23 (bi rad 1) Physical Exam Vital Signs: Last Vital Signs BP 104/72 04/19/25 10:25 Const General: healthy appearing, comfortable, no acute distress, well developed and alert Nutritional Appearance: average body habitus Orientation/consciousness: patient oriented x3 Limitations: no limitations HEENT Head: Yes normocephalic Neck Neck: Yes normal visual inspection Chest Chest palpation & inspection: normal inspection of the chest Breast/axilla inspection: normal inspection of the breasts and normal inspection of the axillae Breast/axilla palpation: normal palpation of the breasts and normal palpation of the axillae Resp Effort & Inspection: normal respiratory effort GI Inspection: Yes normal to inspection, No Abdominal wall edema and No distended Palpation (GI): Soft to palpation and nontender External Female Exam: normal external appearance and normal appearance of the urethra Neuro General: patient oriented x3 Results Reviewed Results Reviewed: Patient: Melanie Saab MR#: [id number] : 1970 Acct:[id number] Age/Sex: 53 / F ADM Date: 11/22/23 Loc: HO.MAMMO Attending Dr: Александр Manriquez MD Ordering Physician: Александр Manriquez MD Results: 1Negative Date of Service: 11/22/23 Follow Up: 1 Year From Original Mammogram Procedure(s): MM tomosynthesis screening BI Accession Number(s): [id number] cc: Александр Manriquez MD~ EXAMINATION: MM SCREENING DIGITAL BREAST TOMOSYNTHESIS, BILATERAL CLINICAL INFORMATION: Screening. Asymptomatic. COMPARISON: Mammography: This study is compared with prior exams dating back to 2016. TECHNIQUE: Digital breast tomosynthesis is performed in both the craniocaudal and mediolateral oblique views along with computer-aided detection (CAD). Synthesized 2D images are generated from the tomosynthesis. FINDINGS: The breasts are heterogeneously dense, which may obscure small masses (ACR BI-RADS breast composition Category c). There are no significant masses, abnormal calcifications, or other abnormalities. MM/MM tomosynthesis screening BI IMPRESSION: No mammographic evidence of malignancy. ASSESSMENT: BI-RADS BI-RADS 1 - Negative RECOMMENDATION: Routine annual mammography screening. 1 year F/U This examination should not preclude the clinical evaluation of a suspicious palpable abnormality. This patient's information was entered into a reminder system with a target due date for their next mammogram. Dictated By: Karen Aguilar MD Signed By: <Electronically signed by Karen Aguilar MD in OV> 12/19/23 2217 DD/ 1158 TD/TT: Manager Planning: November 2023 Pap which was a repeat was negative with atrophic changes noted and negative HPV. ([facility] is in scanned lab section) Assessment & Plan Assessment & Plan (1) Women's annual routine gynecological examination: Code(s): Z01.419 - Encounter for gynecological examination (general) (routine) without abnormal findings Category: Medical (2) Cervical cancer screening: Comment: 10/20/2023 Pap as insufficient cellular material though HPV is negative will need repeat. 12/05/2023 Pap is negative with negative HPV atrophic changes mostly parabasal cells, consistent with anatomy and changes. Code(s): Z12.4 - Encounter for screening for malignant neoplasm of cervix Category: Medical (3) Breast cancer screening: Comment: States her mother of breast cancer. She is discussed this with her primary she is now going to getting yearly mammograms, discussed genetic screening as well. Code(s): Z12.39 - Encounter for other screening for malignant neoplasm of breast Category: Medical (4) Family history of breast cancer in first degree relative: Code(s): Z80.3 - Family history of malignant neoplasm of breast Category: Medical (5) Premature menopause: Code(s): E28.319 - Asymptomatic premature menopause Category: Medical Plan -----Discussed in this visit the following: healthy balanced diet, regular and consistent exercise, getting recommended health screens, doing the best she can for her particular health concerns, kegel exercises, pap smear screening and followup recommendations, mammography screening and SBE, normal changes in cycles in her life stage--- . Reviewed her Pap smear which was negative with negative HPV testing in November of 2023 (that was the repeat Pap). Her last mammogram was negative I again reviewed her family history of her mother having breast cancer. She does not know if her mother had the BRCA testing she in 2016 which is when the patient herself said she had her last period though it might of been the year before (she went a year without her period, while her mother was dying and then when her mother she had 1 last short period. Discussed that it might be beneficial to have a conversation with the breast surgeon about breast cancer screening for herself and whether not she would qualify for any further screens because of her maternal history of breast cancer. I offered to place a referral and she is in agreement. Orders: Orders MM tomosynthesis screening BI Today E28.319 - Asymptomatic premature menopause, Z01.419 - Encounter for gynecological examination (general) (routine) without abnormal findings, Z12.31 - Encounter for screening mammogram for malignant neoplasm of breast, Z12.39 - Encounter for other screening for malignant neoplasm of breast, Z12.4 - Encounter for screening for malignant neoplasm of cervix, Z80.3 - Family history of malignant neoplasm of breast Referrals Breast Surgery Referral Z01.419 - Encounter for gynecological examination (general) (routine) without abnormal findings, Z12.39 - Encounter for other screening for malignant neoplasm of breast, Z12.4 - Encounter for screening for malignant neoplasm of cervix, Z80.3 - Family history of malignant neoplasm of breast Coding Level of Care Code Est Pt Prev Care 40-64y(27082) Diagnoses Women's annual routine gynecological examination Z01.419 Cervical cancer screening Z12.4 Breast cancer screening Z12.39 Family history of breast cancer in first degree relative Z80.3 Premature menopause E28.319
[2025-04-19 10:25] VITALS: BP 104/72
== END 2025-04-19 12:48 | disposition home or self-care (01) ==
LOC: HO.HWSM 10:22
PROVIDERS: PCP Internal Medicine; Visit Provider Advanced Practice Midwife
DX: Z01.419 Encounter for gynecological examination (general) (routine) without abnormal findings (principal); Z12.4 Encounter for screening for malignant neoplasm of cervix; Z12.39 Encounter for other screening for malignant neoplasm of breast; Z80.3 Family history of malignant neoplasm of breast; E28.319 Asymptomatic premature menopause
CPT/HCPCS: 99396

== ENCOUNTER → 2025-04-19 10:22 | Outpatient (BNVA) | payer OTHER, SELFPAY | PROVIDERS: PCP Internal Medicine; Visit Provider Advanced Practice Midwife | DX: Z01.419 Encounter for gynecological examination (general) (routine) without abnormal findings (principal); Z12.39 Encounter for other screening for malignant neoplasm of breast; Z80.3 Family history of malignant neoplasm of breast; E28.319 Asymptomatic premature menopause; Z98.51 Tubal ligation status | CPT/HCPCS: 99396 ==

== ENCOUNTER 2025-05-13 10:33 | Outpatient (AMB) | payer OTHER, SELFPAY ==
--- NOTE | 2025-05-13 10:46 | A.OFFVIS_ITS ---
Vital Signs 05/13/25 10:55 Height 5 ft 2 in Weight 125 lb BMI 22.9 BP 130/82 Blood Pressure Location Rt brachial Position Sitting Pulse 75 Intake Visit Reasons: screening for malignant neoplasm of breast Intake Note: Patient is seen in office for screening for malignant neoplasm of the breast. Reports mother hx of breast CA. Pt c/o: denies lumps, bumps, nipple discharge. mm sched:07/09/24 @ 11:[address] Train Driver Required: No Accompanied by: Self / Same As Patient Allergies No Known Allergies (No Known Allergies*) Allergy (Verified 05/13/25 10:52) Medication List - Last Reconciled 05/13/25 by Clint Maher MD calcium carbonate 500 mg PO DAILY cholecalciferol (vitamin D3) mcg PO riboflavin (vitamin B2) 25 mg PO DAILY HPI Comments Details: 55-year-old female patient presenting for breast evaluation with a strong family history of breast cancer. Her mother was diagnosed with breast cancer at the age of 55. She underwent treatment at that time but subsequently developed a recurrent breast cancer the age of 68 which was found to be metastatic to her spine. She less than a month after its diagnosis. The patient denies any breast problems or breast symptoms. She denies any previous breast biopsies or other breast surgery. She reports that her daughter underwent genetic testing in [place] and was told that she was at an increased risk for breast cancer although the specific results were not known. The patient has never undergone genetic testing herself. She denies a family history of ovarian cancers. Her most recent mammogram of 11/22/2023 revealed no mammographic evidence of malignancy (BI-RADS 1). She is scheduled for her annual mammogram on 07/09/2025 at [facility]. Her breast density score was C. Her menarche was the age of 17, she is 2 para 2 in her 1st child was born when she was 25 years old. Her last period was when she was 48 years old and she denies using hormone replacement therapy. [facility] Medical History Breast cancer screening Cervical cancer screening Women's annual routine gynecological examination Encounter for general adult medical examination with abnormal findings Muscle spasm Shoulder pain Colon cancer screening Encounter for routine gynecological examination Surgical History Hx of appendectomy History of bilateral tubal ligation Family History Mother Breast cancer Cancer of spine Social History Housing: House Alcohol intake: never Patient Tobacco Use Status: Never used Tobacco e-Cigarette/Vaping Use: Never Used service: No Current occupational status: employed 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 Cognitive needs: No Hearing needs: No Vision needs: Yes Female Reproductive History Menstrual Age of Menarche: 17 Review of Systems Const All systems reviewed & are unremarkable except as noted in HPI and below Physical Exam Vital Signs: Last Vital Signs Pulse 75 05/13/25 10:55 BP 130/82 05/13/25 10:55 BMI result Body Mass Index 22.9 Const General: cooperative and no acute distress Nutritional Appearance: well nourished Orientation/consciousness: patient oriented x3 Limitations: no limitations HEENT Head: Yes normocephalic and Yes atraumatic Ears: hearing grossly normal bilaterally Chest Other: Left breast: No skin change, no nipple retraction, no nipple discharge, no palpable mass, no enlarged lymph nodes. Right breast: No skin change, no nipple retraction, no nipple discharge, no palpable mass, no enlarged lymph nodes Resp Effort & Inspection: normal respiratory effort, no audible wheezes, no cough and no respiratory distress Cardio Jugular venous distension: no JVD GI Inspection: Yes normal to inspection Skin Other: Warm, dry, no rash Neuro General: patient oriented x3 Extrem General: Yes no clubbing, cyanosis or edema Assessment & Plan Assessment & Plan (1) Family history of breast cancer in first degree relative: Code(s): Z80.3 - Family history of malignant neoplasm of breast Category: Medical (2) Breast cancer screening: Comment: States her mother of breast cancer. She is discussed this with her primary she is now going to getting yearly mammograms, discussed genetic screening as well. Code(s): Z12.39 - Encounter for other screening for malignant neoplasm of breast Category: Medical Qualifiers: Breast cancer screening modality: mammogram Qualified Code(s): Z12.31 - Encounter for screening mammogram for malignant neoplasm of breast Plan 55-year-old female patient presenting with a strong family history of breast cancer in her mother when she was 57 years old. Examination today revealed no suspicious findings in either breast. Her most recent mammogram from last year revealed no suspicious findings in either breast. We discussed genetic testing given her strong family history and she consents to proceeding with this. She will return in approximately 6 weeks to review the results. Further workup will be based on the genetic testing results. Coding Level of Care Code New Pt Level 4 (01582) Diagnoses Family history of breast cancer in first degree relative Z80.3 Encounter for screening mammogram for malignant neoplasm of breast Z12.31 Breast cancer screening modality: mammogram
[2025-05-13 10:55] VITALS: BP 130/82; PULSE 75; BMI 22.9
--- OUTSIDE RECORDS SUMMARY | 2025-05-13 12:01 | XMS_ITS | Clinical Summary ---
Author Organization [facility] Prior to 10/13/24 Address [address] [place] [address] Care Team Providers Care Tapper Supervisor Name Role Phone Unknown, Primary Care Provider [...] (1 of 2) 01/13/2022 Influenza Vaccine (#1) 2025 Pneumococcal Vaccine Aged Out No long er eligible based on patient's age to complete this topic RSV Ped < 20 months Aged Out No longe r eligible based on patient's age to complete this topic Care Teams Tapper Supervisor Relationship Specialty Start Date End Date Unknown, PCP - General 12/03/20
== END 2025-05-13 11:38 | disposition home or self-care (01) ==
LOC: HO.HGS 10:34
PROVIDERS: PCP Internal Medicine; Visit Provider Surgery
DX: Z80.3 Family history of malignant neoplasm of breast (principal); Z12.31 Encounter for screening mammogram for malignant neoplasm of breast
CPT/HCPCS: 99204

== ENCOUNTER → 2025-05-13 10:33 | Outpatient (BNVA) | payer OTHER, SELFPAY | PROVIDERS: PCP Internal Medicine; Visit Provider Surgery | DX: Z12.31 Encounter for screening mammogram for malignant neoplasm of breast (principal); Z80.3 Family history of malignant neoplasm of breast | CPT/HCPCS: 99202 ==